=== PATIENT | male | born 1985 | race Caucasian/White ===

== ENCOUNTER 2016-10-11 08:46 | Emergency (ER) | payer OTHER ==
[2016-10-11 09:02] VITALS: BP 109/61; PULSE 70; RESP 16; TEMP 98.4; O2SAT 95
--- NOTE | 2016-10-11 09:09 | UCPHY ---
H & P Patient Type: New Chief Complaint Nursing Narrative: injured r foot yesterday, bruising and swelling over r lateral foot Time Seen by Provider: 10/11/16 09:07 HPI/ROS: CHIEF COMPLAINT: Right foot pain HISTORY OF PRESENT ILLNESS: The patient is a 31-year-old man who comes to the Urgent Care complaining of right foot pain. He states that he was bringing in the grocery yesterday he stepped unusually up stairs. He inverted his ankle. He has had pain at the lateral aspect of his foot ever since and now swelling and bruising. REVIEW OF SYSTEMS: Constitutional: denies: chills, fever, recent illness, recent injury EENTM: denies: blurred vision, double vision, nose congestion Respiratory: denies: cough, shortness of breath Cardiac: denies: chest pain, irregular heart rate, lightheadedness, palpitations Gastrointestinal/Abdominal: denies: abdominal pain, diarrhea, nausea, vomiting, blood streaked stools Genitourinary: denies: dysuria, frequency, hematuria, pain Musculoskeletal: see HPI Skin: denies: lesions, rash, jaundice, bruising Neurological: denies: headache, numbness, paresthesia, tingling, dizziness, weakness Hematologic/Lymphatic: denies: blood clots, easy bleeding, easy bruising Immunologic/allergic: denies: HIV/AIDS, transplant EXAM: GENERAL: Well-appearing, well-nourished and in no acute distress. HEAD: Atraumatic, normocephalic. EYES: Pupils equal round and reactive to light, extraocular movements intact, sclera anicteric, conjunctiva are normal. ENT: TMs normal, nares patent, oropharynx clear without exudates. Moist mucous membranes. NECK: Normal range of motion, supple without lymphadenopathy or JVD. LUNGS: Breath sounds clear to auscultation bilaterally and equal. No wheezes rales or rhonchi. HEART: Regular rate and rhythm without murmurs, rubs or gallops. ABDOMEN: Soft, nontender, normoactive bowel sounds. No guarding, no rebound. No masses appreciated. BACK: No CVA tenderness, no spinal tenderness, step-offs or deformities EXTREMITIES: Pain and swelling to right lateral foot over base of 5th metatarsal bone. Mild tenderness to palpation. No ankle pain. No pain over the bridge of foot or heel. NEUROLOGICAL: Cranial nerves II through XII grossly intact. Normal speech, normal gait. 5/5 strength, normal movement in all extremities, normal sensation PSYCH: Normal mood, normal affect. SKIN: Warm, dry, normal turgor, no visible rashes or lesions. Source: Patient Exam Limitations: No limitations - Medical/Surgical History Hx Asthma: No Hx Chronic Respiratory Disease: No Hx Diabetes: No Hx Cardiac Disease: No Hx Renal Disease: No Hx Cirrhosis: No Hx Alcoholism: No Other PMH: denies - Family History Significant Family History: No pertinent family hx - Social History Smoking Status: Never smoked Alcohol Use: Sober Drug Use: None Constitutional: Initial Vital Signs Temperature (C) 36.9 C 10/11/16 08:56 Heart Rate 70 10/11/16 08:56 Respiratory Rate 16 10/11/16 08:56 Blood Pressure 109/61 10/11/16 08:56 O2 Sat (%) 95 10/11/16 08:56 O2 Delivery Mode Room Air Medical Decision Making - Diagnostics Imaging: X-ray: Foot x-ray was obtained. I viewed the images myself on the PACS system. My interpretation of the images is: Pseudo Bloom fracture. The radiologist interpretation is pending. ED Course/Re-evaluation: The patient has a pseudo Bloom fracture on x-ray. Place him in a cm some boot and have him follow up with Orthopedics. He and his understand agree with this plan. Differential Diagnosis: Partial list of the Differential diagnosis considered include but were not limited to; Bloom fracture, pseudo Bloom fracture, stress fracture and although unlikely based on the history and physical exam, I also considered ankle fracture, ankle sprain. I discussed these differential diagnoses and the plan with the patient as well as the usual and expected course. The patient understands that the diagnosis is provisional and that in medicine we are not always correct and that further workup is often warranted. Usual and customary warnings were given. All of the patient's questions were answered. The patient was instructed to return to the emergency department should the symptoms at all worsen or return, otherwise to followup with the physician as we discussed. Departure - Departure Disposition: Home, Routine, Self-Care Clinical Impression: Metatarsal fracture Qualifiers: Encounter type: initial encounter Metatarsal bone: fifth Fracture type: closed Fracture alignment: nondisplaced Laterality: right Qualified Code(s): S92.354A - Nondisplaced fracture of fifth metatarsal bone, right foot, initial encounter for closed fracture Condition: Fair Instructions: Foot Fracture in Adults (ED) Referrals: NONE *PRIMARY CARE P,. [Primary Care Provider] - As per Instructions Keon Samaniego MD [Medical Doctor] - As per Instructions - PQRS PQRS Measurement: Not applicable
== END 2016-10-11 09:40 | disposition home or self-care (01) ==
LOC: CED 08:46
DX: S92.354A Nondisplaced fracture of fifth metatarsal bone, right foot, initial encounter for closed fracture (principal); Y92.009 Unspecified place in unspecified non-institutional (private) residence as the place of occurrence of the external cause
CPT/HCPCS: 73630-PO; 99204-PO; G0463-PO; L4386